=== PATIENT | female | born 1985 | race Caucasian/White ===

== ENCOUNTER 2025-07-18 15:50 | Inpatient (IN) | payer OTHER, SELFPAY ==
[2025-07-18] VITALS (18 sets, daily range): BP systolic 79–115; BP diastolic 51–66; BMI 21.4
--- NOTE | 2025-07-18 12:12 | ED.GENMED ---
History of Present Illness
General
Chief Complaint: Anal/Rectal Problem
Source: patient
Exam Limitations: none
Time Seen by Provider: 07/18/25 12:03
History of Present Illness
History of Present Illness:
See MDM
Past History
Past History
ED Past Medical History: Other (PCOS)
ED Past Surgical History: None
Social History
Tobacco: Non-smoker
Alcohol: None
Phy Exam
Physical Exam
Physical Exam:
See MDM
Course
Orders/Labs/Results
Orders:
Orders
07/18/25 12:07
0.9% Sodium Chloride 1000 ml [Nss] 1,000 ml IV BOLUS
HYDROmorphone [Dilaudid] 0.5 mg IV NOW STA
Test Result ONCE
07/18/25 12:14
Piperacillin/Tazo 3.375 Gram [Zosyn] 3.375 gram in 50 ml IV NOW
07/18/25 12:41
Complete Blood Count/With Diff Urgent
Comprehensive Metabolic Panel Urgent
HCG, Serum Qualitative Screen Urgent
07/18/25 13:09
Vancomycin [Vancocin] 1,500 mg 0.9% Sodium Chloride 500 ml [Nss] 500 ml IV NOW
07/18/25 13:32
Fentanyl Citrate/Pf [Sublimaze] 25 mcg IV [id number] PRN
HYDROmorphone [Dilaudid] 0.25 mg IV [id number] PRN
HYDROmorphone [Dilaudid] 0.5 mg IV [id number] PRN
Ondansetron Injectable [Zofran] 4 mg IV PACU-ONCEPRN PRN
Prochlorperazine [Compazine] 5 mg IV PACU-ONCEPRN PRN
Notify MD As Directed
Notify physician if: for SDS patients with known or suspected sleep obstructive sleep apnea, monitor in the
PACU.
Notify MD for any apneic/desaturation episodes
O2 Therapy [RESP] Urgent
Titrate/Wean O2 to maintain O2 sat greater than (%): 92
Special Instructions: -Provide supplemental oxygen to achieve O2 sat of 92% or greater.
-After 15 min, may wean O2 and discontinue if patient is able to maintain O2 sat of 92%
or greater during recovery period.
If patient is a discharge home, without oxygen therapy, notify anestheiologist if
unable to maintain O2 SAT of 92% or greater on room air for MD clearance.
07/18/25 13:45
Normosol (Mult Electrolytes) [Normosol-R/Plasmalyte-A] 1,000 ml IV PER PROTOCOL
Abnormal Lab Results
07/18/25
12:41
Hct 36.9 L %
(37.0-47.0)
Abs Immat Gran (auto) 0.1 H 10^3/uL
(0-0.05)
Absolute Neuts (auto) 8.0 H 10^3/uL
(1.4-6.5)
Absolute Monos (auto) 0.7 H 10^3/uL
(0.1-0.6)
Immature Gran % 1.4 H %
(0-0.5)
Neutrophils % 77.0 H %
(42.2-75.2)
Lymphocytes % 13.4 L %
(20.5-51.1)
07/18/25 12:41
07/18/25 12:41
Vital Signs
Initial and Last Documented VS:
Initial Vital Signs
Temp Pulse Resp BP Pulse Ox
98.3 F 112 16 115/66 100
07/18/25 11:41 07/18/25 11:41 07/18/25 11:41 07/18/25 11:41 07/18/25 11:41
Last Documented Vital Signs
Temp Pulse Resp BP Pulse Ox
98.3 F 112 16 115/66 100
07/18/25 11:41 07/18/25 11:41 07/18/25 11:41 07/18/25 11:41 07/18/25 12:15
MDM/Problems Addressed
Differential Diagnosis Includes:
Note:
CHIEF COMPLAINT(S)
Cellulitis requiring evaluation and management.
HISTORY OF PRESENT ILLNESS
The patient is a 39-year-old female who was evaluated for cellulitis. She was initially seen at [facility], where she was started on abx. While at [facility], she received a dose of Bactrim in the emergency room, and upon discharge, she consulted a
controller instructor. The controller instructor discontinued Bactrim and initiated doxycycline due to potential renal implications with concurrent use of spironolactone, a medication she is currently taking. Since then, patient has noticed swelling and tenderness
in her left buttock that is now radiating into her labia. She was told to see colorectal surgery as an outpatient. She called the office but was sent to the emergency department due to the concern for significant infection that may require urgent
surgery
ALLERGIES
The patient denies any allergies to medications.
MEDICATIONS
The patient is currently taking doxycycline for her condition and spironolactone.
PHYSICAL EXAM
General: Alert, no acute distress.
Skin: Warm, dry.
Head: Normocephalic, atraumatic
Neck: Appears supple, trachea midline.
Eyes, Ears, Nose, Mouth, and Throat: Moist mucous membranes
Cardiovascular: No signs of cyanosis
Respiratory: Respirations are non-labored.
Abdomen: Non-distended
Rectum: Exam performed with nurse blanca Morris at bedside. Significant swelling and cellulitic changes to left buttock that seems to be tracking to anus
Musculoskeletal: No deformities
Neurological: No focal neurological deficit observed.
Psychiatric: Cooperative, appropriate mood and affect.
PLAN
Initiate strong pain management for cellulitis-associated pain. Discuss potential surgical intervention with Dr. Palm and arrange for further evaluation as needed.
DIFFERENTIAL DIAGNOSIS
The Differential Diagnosis includes, in no particular order and is not limited to:
1. Abscess formation secondary to cellulitis
2. Deep vein thrombosis
3. Erysipelas
4. Insect bite reaction
5. Necrotizing fasciitis
6. Lymphedema
7. Lipodermatosclerosis
8. Venous stasis dermatitis
9. Thrombophlebitis
10. Allergic contact dermatitis
SUMMARY OF ENCOUNTER
The patient was evaluated for cellulitis at [facility], where a CT scan of the abdomen was performed, and she received a dose of Bactrim in the emergency department. A controller instructor switched her from Bactrim to doxycycline due to potential renal
interactions with her current medication, spironolactone. The patient required further evaluation for cellulitis-associated pain management and was assessed for potential surgical intervention for an abscess.
DISPOSITION
Admit to the operating room for surgical debridement of the abscess.
MANAGEMENT OF THE PATIENTS CARE WAS DISCUSSED WITH
Discussion with a colorectal surgeon regarding surgical debridement of abscess.
PLAN
Initiate strong pain management for cellulitis-associated pain. The patient will be admitted to the operating room for surgical debridement of an abscess by a colorectal surgeon. Antibiotics initiated per the surgeon�s recommendation. Post-surgery,
discharge will be considered after an observation period if the patients condition remains stable.
MEDICATION RECONCILIATION
Doxycycline continued for cellulitis management as prescribed by the controller instructor, and appropriate antibiotics started per surgical recommendations.
MEDICAL DECISION MAKING
- Number and Complexity of Problems Addressed: Chronic conditions affecting care include potential renal implications with the concurrent medication spironolactone and concerns for abscess formation secondary to cellulitis.
- Data:
Category 1: CT scan of the abdomen reviewed from [facility].
Category 3: Discussion of management with a colorectal surgeon for surgical intervention.
- Risk: Surgical intervention planned for abscess management accompanied by antibiotic therapy.
DIAGNOSIS
Abscess formation secondary to cellulitis (L02.91).
*Pulse Oximetry
SaO2: 100
Oxygen Mode of Delivery: Room air
Patient hypoxic: no
*Critical Care Note
Total Time (30-74mins, 75-104mins- exclusive of procedures): Not Applicable
ED Attending Note
-
Portions of this chart may have been created with voice recognition software.� Occasional wrong word or��sound alike� substitutions may have occurred due to the inherent limitations of voice recognition software.
Discharge Plan
Departure
Patient Disposition: Admit
Date of Disposition: 07/18/25
Time of Disposition: 13:33
Admit to: Med/Surg
Presentation/result/management discussed w/ accepting MD/DO: Colorectal surgeon
Discharge Problem:
Abscess, perirectal
Prescriptions:
No Action
sertraline 100 mg tablet
200 mg PO DAILY
ibuprofen 600 mg tablet
600 mg PO Q6HPRN PRN (Reason: mild to moderate pain)
metformin 500 mg tablet extended release 24 hr
500 mg PO DAILY
doxycycline hyclate 100 mg tablet
100 mg PO BID
spironolactone 50 mg tablet
50 mg PO HS
buspirone 15 mg tablet
15 mg PO BID
oxycodone 5 mg tablet
5 mg PO Q4HPRN PRN (Reason: moderate to severe pain)
atomoxetine 80 mg capsule
80 mg PO DAILY
Referrals:
Rylee Houston DO [Family Provider, Internal Medicine]
Interventions
Interventions:
*Risk Screen - Suicide Last Done: 07/18/25 11:41
*General Assessment Last Done: 07/18/25 12:42
*Neglect/Abuse Screening Last Done: 07/18/25 11:41
*ED- Fall Risk Assessment Last Done: 07/18/25 12:42
*ED COVID-19 Vaccine History Last Done: 07/18/25 12:42
*ED Influenza Vaccine History Last Done: 07/18/25 12:42
ED-Skin Assessment Last Done: 07/18/25 12:42
Discharge Date and Time
Print Language: FAROESE
[2025-07-18] MEDS: DILAUDID 0.5 MG IV (12:33)
[2025-07-18] MEDS: NSS 1000 IV (12:33)
[2025-07-18] MEDS: ZOSYN 50 IV ×3 (12:34→23:41)
[2025-07-18 13:06] LABS: Hematocrit 36.9 % (37.0-47.0); Hemoglobin 12.4 g/dL (12.0-16.0); Mean Corp Hgb Conc. 33.6 g/dL (33.0-37.0); Mean Corpuscular Volume 82.7 fL (81.0-99.0); Nucleated Red Blood Cells % 0 %; Platelet Count 344 10^3/uL (130-400); Red Cell Dist. Width 12.9 % (11.5-14.5)
[2025-07-18 13:23] LABS: HCG, Serum Qualitative Screen Negative
[2025-07-18] MEDS: VANCOCIN 530 MG IV (13:28)
[2025-07-18 13:30] LABS: ALT (SGPT) 15 U/L (0-35); AST (SGOT) 19 U/L (14-36); Albumin 4.0 g/dl (3.5-5.0); Alkaline Phosphatase 84 U/L (38-126); Blood Urea Nitrogen 8 mg/dl (7-17); Calcium 9.8 mg/dl (8.4-10.2); Carbon Dioxide 27 mmol/L (22-30); Chloride 106 mmol/L (98-107); Estimated Creatinine Clearance 116 ml/min; Glucose 90 mg/dl (70-99); Potassium 4.4 mmol/L (3.5-5.1); Sodium 138 mmol/L (135-145); Total Protein 6.8 g/dl (6.3-8.2); eGFR > 60.00
--- NOTE | 2025-07-18 13:33 | HPS.HSE ---
Family Physician
-
Family Physician: Rylee Houston DO
Chief Complaint
-
buttock pain
History of Present Illness
39-year-old female, with a past medical history of PCOS, presents to the emergency department complaining of anal pain. She was initially seen at [facility] and was started on Bactrim. After discharge she went to a home hospice rn. The
home hospice rn stopped the Bactrim and then started doxycycline due to potential renal implications given that she is on spironolactone. Since that appointment, the patient has noticed swelling and tenderness in the left buttock that is now started
radiating into her labia. It started to have bleeding and pus two days ago. She called our office earlier this morning asking to be seen sooner than her 3:00 appointment. Her bowel movements are regular. She does mention having rectal bleeding off
an on with her menstrual cycle for the past 15 years. Her mother has colon cancer and she has had several colonoscopies in the past. Apparently she is 'polyp prone' and has had many polyps removed in the past. She had two surgeries for endometriosis
and an appendectomy. Due to the pain, Dr. Palm spoke with her on the phone and given the amount of pain, she was referred to the emergency department.
Medical History
Past Medical History
Past Medical History: Reports Other (PCOS, recent right eye cellulitis)
Past Surgical History: Reports Appendectomy and Other (endometriosis surgery x 2)
Social History
Tobacco: Non-smoker
Alcohol: None
Family History
Family History: Not pertinent
Allergies / Home Medications
Allergies reflects when Allergies were last updated in [facility].
Home Medications with original date entered in [facility]
Allergy/Medication List:
Allergies: none
Medications:
Atomoxetine 80 mg p.o. daily
Buspirone 15 mg p.o. twice daily
Doxycycline hyclate 100 mg p.o. twice daily
Metformin 500 mg p.o. daily
Oxycodone 5 mg p.o. every 4 hours as needed
Sertraline 200 mg p.o. daily
Spironolactone 50 mg p.o. nightly
Review of Systems
-
History Source: Patient
: Reports Other (anal pain and swelling on left buttock)
Physical Exam
Vital Signs
Vital Signs
Temp Pulse Resp BP Pulse Ox
98.3 F 112 16 115/66 100
07/18/25 11:41 07/18/25 11:41 07/18/25 11:41 07/18/25 11:41 07/18/25 12:15
Physical Exam
General: Well Developed, Well Nourished and No Apparent Distress
Rectal: Other (Large left buttocks abscess, erythema surrounding abscess, pain on palpation)
Skin: Warm and Dry
Neuro: AO x 3
Psych: Calm
Laboratory Results
-
07/18/25 12:41
07/18/25 12:41
Laboratory Results
Total Bilirubin 0.4 mg/dl (0.2-1.3) 07/18/25 12:41
AST 19 U/L (14-36) 07/18/25 12:41
ALT 15 U/L (0-35) 07/18/25 12:41
Alkaline Phosphatase 84 U/L (38-126) 07/18/25 12:41
Data Reviewed
-
Lab Data: Labs Reviewed by me, Discussed with Physician and Discussed with Patient
Impression/Plan
-
IMPRESSION: 39-year-old female with large left buttocks abscess
PLAN: Plan is for operating room today for an incision and drainage of the left buttocks abscess. Remain n.p.o. for now. Discussed with patient who is in agreement. Will take place later this afternoon. IV antibiotics.
--- NOTE | 2025-07-18 15:58 | W.IMMPOSTOP ---
Addendum entered and electronically signed by Bo Vega MD 07/18/25 16:10:
Updated patient's friend, Sandra Sargent, via phone conversation.
Original Note:
Surgical Immed Post Op Note
-
Primary Surgeon: Junior Vega MD
Assisting Surgeon: none
Pre-op Diagnosis: left buttock cellulitis with abscess
Post-op Diagnosis: same
Procedure Performed: incision and drainage of left buttock abscess
Anesthesia Type: MAC plus local
Specimen / Cultures: left buttock abscess fluid for cultures
Estimated Blood Loss: 10 cc
Complications: no immediate
Operative Findings: left buttock cellulitis with abscess
Wound packed with iodoform and covered with dry dressings/tape.
Will send to med surg on IV antibiotics.
[2025-07-18] MEDS: NORMOSOL-R/PLASMALYTE-A 1000 IV (18:48)
[2025-07-18] MEDS: TYLENOL 650 MG PO (19:51)
[2025-07-18] MEDS: ROXICODONE 2.5 MG PO (20:52)
[2025-07-19 01:18] VITALS: BP 98/66
[2025-07-19 03:00] VITALS: BP 110/81
--- NOTE | 2025-07-19 03:43 | PTCARENOTE ---
Patient resting comfortably in bed. She is sleepy but easily arousable. SBP 80's-90. Patient denies dizziness. IVF per order. PO intake encouraged. Ambulating with steady gait. Repeat BP 110/81.
[2025-07-19] MEDS: ZOSYN 50 IV ×2 (06:18→13:59)
[2025-07-19 07:00] VITALS: BP 104/53
[2025-07-19] MEDS: ROXICODONE 5 MG PO ×3 (08:11→22:27)
--- NOTE | 2025-07-19 08:31 | W.PN.CRS1 ---
Today's Communication / Plan
-
sitz baths
pain control
IV antibiotics
npo midnight
Assessment/Plan
-
POD#1 incision and drainage of left buttock abscess
labs pending
-Apparently dilaudid IV making patient hypotensive per nurse, switched to po oxycodone
-OOB as tolerated
-Sitz baths twice a day with warm water
-Continue IV antibiotics
-Restart home meds
-Regular diet. NPO at midnight in case needs a take back to OR tomorrow.
-Wound cultures pending
-Dressing changes daily and as needed
Subjective Data
Procedure
07/18/2025- incision and drainage of left buttock abscess
Subjective Data
Date of Service: July 19, 2025
Patient states she is still sore but feels better. Otherwise has no complaints.
Objective Data
-
Vital Signs
Temp Pulse Resp BP Pulse Ox
98.4 F 74 16 104/53 100
07/19/25 07:00 07/19/25 07:00 07/19/25 07:00 07/19/25 07:00 07/19/25 07:00
Intake & Output
07/18/25 07/19/25 07/20/25
06:59 06:59 06:59
Intake Total 1645 / 2125 480 / 480
Balance 1645 / 2125 480 / 480
Intake:
Oral fluids 720 / 1200 480 / 480
IV fluids (Total) 825 / 825
IV piggybacks 100 / 100
Other:
Number of approximated MODERATE 2 1
amounts of urine
Number of approximated LARGE 1 2
amounts of urine
Lab Results
07/18/25 12:41
Physical Exam
-
General: No Acute Distress and AOx3
Abdomen: Soft, Non Distended and Non Tender
Wound: Dressing Changed
Incision: Skin Erythema (mild, improved)
[2025-07-19] MEDS: BUSPAR 15 MG PO ×2 (09:07→19:49)
[2025-07-19] MEDS: ZOLOFT 200 MG PO (09:07)
[2025-07-19] MEDS: GLUCOPHAGE XR EXTENDED RELEASE 500 MG PO (09:11)
[2025-07-19 09:18] LABS: Hematocrit 34.3 % (37.0-47.0); Hemoglobin 11.4 g/dL (12.0-16.0); Mean Corp Hgb Conc. 33.2 g/dL (33.0-37.0); Mean Corpuscular Volume 84.1 fL (81.0-99.0); Nucleated Red Blood Cells % 0 %; Platelet Count 332 10^3/uL (130-400); Red Cell Dist. Width 12.7 % (11.5-14.5)
--- NOTE | 2025-07-19 09:59 | CM ---
CM following re: discharge planning.
Reviewed pt's chart, met with pt.
Pt is a 39 year old female, admitted with primary dx of POD#1 incision and drainage of left buttock abscess.
Pt reports she lives alone in an apartment, no steps, no family, no children. Pt described herself as independent in all areas [employer], works.
PCP: Rylee Houston
[facility]
D/C plan: home with anticipated no needs vs RN VN if recommended.
CM will follow with discharge plan updates as hospitalization progresses
[2025-07-19 11:00] VITALS: BP 109/76
[2025-07-19] MEDS: NORMOSOL-R/PLASMALYTE-A 1000 IV (11:16)
[2025-07-19 13:36] LABS: Glucose - Point of Care 136 mg/dl (70-99)
--- NOTE | 2025-07-19 14:07 | W.PN.UPDATE ---
Update Note
Progress Note Update
I was called to the bedside by nurse about 20 minutes ago. Patient had new onset chest pain like 'an elephant was sitting on her chest which is a pain like someone had 2 hands on her chest'. The nurse performed an EKG which showed normal sinus
rhythm. She is hooked up to a monitor and her vital signs are completely normal. Her symptoms are resolving. She does not appear in any distress or shortness of breath on my examination. I will have the hospitalist see her in consultation. The
patient herself says she is feeling a little bit better every minute. Also, her wound is growing MRSA and I have consulted infectious disease.
--- NOTE | 2025-07-19 14:14 | PTCARENOTE ---
Patient rang for nurse around 1325 c/o chest tightness/heaviness, unable to take a deep breath and shakiness. VS at that time were Temp 98.3 BP 102/64 HR 136 Resps 18. O2 sat on RA 100%. Blood sugar was 136. Ekg obtained. NSR. While talking to
patient heart rate came down to 84. Juana Temple PA-C notified. Came to bedside to see patient. Hospitalist consult ordered and pending.
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
[2025-07-19 15:45] VITALS: BP 113/66
--- NOTE | 2025-07-19 16:29 | PHA.VAN.IN ---
Assessment
- Assessment
Renal Function: Unknown baseline
Historical Micro: History of MRSA infection
AUC Dosing Plan
- Empiric Dosing
Initial / Loading Dose: 1500 mg @ 1328
Maintenance Regimen: 1000 mg IV Q12H
Estimated AUC (mcg*h/mL): 495
Estimated Peak (mcg*h/mL): 33.8
Estimated Trough (mcg/ml): 11.2
Estimated Half Life (H): 6.9
- Monitoring
No levels ordered at this time: level to be ordered at follow-up
Pharmacokinetics Vancomycin I
- -
Patient Age: 39
Vancomycin Day #: 1
Indication: Skin And Soft Tissue
Requesting Provider: Buck Porras MD
Height / Weight:
Height 5 ft 6 in
Actual Weight 60.2 kg
- Vital Signs / Lab Results
Temp Pulse Resp BP Pulse Ox
98.1 F 108 16 113/66 97
07/19/25 15:45 07/19/25 15:45 07/19/25 15:45 07/19/25 15:45 07/19/25 15:45
Lab Results - Hematology
07/18/25 07/19/25
12:41 08:09
WBC 10.4 9.7
Lab Results - Chemistry
07/18/25
12:41
BUN 8
Creatinine 0.6
Estimated Creat Clear 116
Albumin 4.0
Microbiology Results
07/18/25 16:00 Anaerobic Culture - Preliminary
Buttock Culture pending. Anaerobic cultures are examined after 3
days incubation. Additional information to follow.
07/18/25 16:00 Wound Culture - Preliminary
Buttock Staph aureus MRSA
Gram Stain - Preliminary
[2025-07-19 16:48] LABS: Troponin I < 0.012 ng/ml
--- NOTE | 2025-07-19 17:05 | CON.ID ---
Consultation
-
Date/Time Consultation Requested: 07/19/2025 1404
Date/Time Consultation Performed: 07/19/2025 1706
Requesting Provider: Juana Temple
Performing Provider: Dr. Brown
Reason for Consultation: MRSA abscess
Chief Complaint / Past History
History of Present Illness
Saloni Hernandez is a 39-year-old female being evaluated at request of Juana Temple regarding MRSA buttock abscess. History is obtained from chart review, along with patient interview.
The patient reports a significant past medical history of polycystic ovarian syndrome along with endometriosis and also a history of cystic acne for which she is followed by Dermatology and uses Hibiclens soap. She reports that approximately 2
weeks ago she developed a area of cellulitis/SSTI above her right eye and was seen at [facility]. There she was diagnosed with cellulitis and prescribed a 7-day course of amoxicillin. The right eye area improved but approximately 1 week
ago she developed a painful furuncle on the left buttock area. She was seen again at [facility] [address] scan was performed which was reportedly negative. She was prescribed Bactrim. The following day she was evaluated by her
Electrical Maintenance Engineer and was transitioned to Doxy. Ultimately, the pain worsened and she presented to [facility] yesterday for further evaluation. She was evaluated by CRS and taken to the OR yesterday afternoon, undergoing an I&D of a left
buttock abscess. Cultures are now positive for MRSA from the wound and Infectious Diseases is asked to comment upon further antimicrobial management.
At this time she continues with discomfort in the left buttock, and extending to the left labial area.
Past History
Additional Past Medical History:
PCOS
Endometriosis
Additional Past Surgical History:
Endometrial surgery
Allergy History:
gluten Allergy (Verified 07/18/25 20:17)
Shortness of Breath
Medications Reviewed: Yes
Current Antibiotics:
Vancomycin 1 gm IV q.12 hours
Social History
Tobacco: Non-Smoker
Alcohol: None
Drug: None
Living: Alone
Employment: Employed
Family History
Family History: Not Pertinent
Review of Systems
Vital Signs
Temp Pulse Resp BP Pulse Ox
98.1 F 108 16 113/66 97
07/19/25 15:45 07/19/25 15:45 07/19/25 15:45 07/19/25 15:45 07/19/25 15:45
Physical Exam
Physical Exam
Constitutional: No Acute Distress, Comfortable and Non-toxic
Eyes: No Conjunctival Hemorrhage and Sclera Anicteric
Oral: No Thrush and No Ulcers
Cardiovascular: Regular Rate and S1/S2; Negative S3/S4
Pulmonary: Clear; Negative Wheezes, Rales or Rhonchi
Gastrointestinal: Soft, Non Tender and Non Distended
Skin: Other (Left buttock area with open wound (1 cm) with surrounding erythema and induration. Positive tenderness.)
Neurological: Awake and Alert
Psychological: Calm
.
Lab / Diagnostic Study Results
07/19/25 08:09
07/18/25 12:41
Abs Immat Gran (auto) 0.2 10^3/uL (0-0.05) H 07/19/25 08:09
Absolute Neuts (auto) 6.6 10^3/uL (1.4-6.5) H 07/19/25 08:09
Absolute Lymphs (auto) 2.0 10^3/uL (1.2-3.4) 07/19/25 08:09
Absolute Monos (auto) 0.7 10^3/uL (0.1-0.6) H 07/19/25 08:09
Absolute Basos (auto) 0.1 10^3/uL (0-0.2) 07/19/25 08:09
Immature Gran % 1.9 % (0-0.5) H 07/19/25 08:09
Neutrophils % 68.5 % (42.2-75.2) 07/19/25 08:09
Lymphocytes % 20.9 % (20.5-51.1) 07/19/25 08:09
Monocytes % 6.7 % (1.7-9.3) 07/19/25 08:09
Eosinophils % 1.1 % (0-6) 07/19/25 08:09
Basophils % 0.9 % (0-2) 07/19/25 08:09
Microbiology Results
Micro:
07/19/25 16:14 Blood Culture - Pending
Blood/Venous
07/18/25 16:00 Anaerobic Culture - Preliminary
Buttock Culture pending. Anaerobic cultures are examined after 3
days incubation. Additional information to follow.
07/18/25 16:00 Wound Culture - Preliminary
Buttock Staph aureus MRSA
Gram Stain - Preliminary
07/18/25 20:25 MRSA Screen - Pending
Nose
Assessment / Plan
Left buttock abscess
- S/p I&D (07/18/2025)
Normal white count with left shift
Hx Cystic acne
PCOS
Endometriosis
Recommendations:
Wound cultures with MRSA.
Continue with vancomycin for the present. Follow Vanco levels closely to prevent nephrotoxicity
Await final culture and sensitivity results to guide further antimicrobial selection and potential de-escalation.
Local care to the wound area. Follow-up for improvement in induration.
Monitor white count and temperature curve
Further recommendations as additional data is returned.
[2025-07-19] MEDS: TYLENOL 1000 MG PO ×2 (17:48→22:21)
[2025-07-19] MEDS: HEPARIN 5000 UNITS SC (19:49)
[2025-07-19] MEDS: NORMOSOL-R/PLASMALYTE-A IV (21:21)
[2025-07-19] MEDS: ALDACTONE 50 MG PO (22:21)
[2025-07-19 23:00] VITALS: BP 106/67
[2025-07-20] MEDS: NORMOSOL-R/PLASMALYTE-A 1000 IV ×2 (03:32→17:21)
[2025-07-20 07:05] VITALS: BP 114/76
[2025-07-20 08:38] LABS: Hematocrit 34.8 % (37.0-47.0); Hemoglobin 11.7 g/dL (12.0-16.0); Mean Corp Hgb Conc. 33.6 g/dL (33.0-37.0); Mean Corpuscular Volume 84.3 fL (81.0-99.0); Platelet Count 340 10^3/uL (130-400); Red Cell Dist. Width 12.6 % (11.5-14.5)
[2025-07-20] MEDS: TYLENOL 1000 MG PO ×4 (08:45→22:11)
[2025-07-20] MEDS: BUSPAR 15 MG PO ×2 (08:45→20:14)
[2025-07-20] MEDS: GLUCOPHAGE XR EXTENDED RELEASE 500 MG PO (08:45)
[2025-07-20] MEDS: ZOLOFT 200 MG PO (08:45)
[2025-07-20] MEDS: HEPARIN 5000 UNITS SC ×2 (08:46→20:14)
[2025-07-20 08:53] LABS: Blood Urea Nitrogen 8 mg/dl (7-17); Calcium 8.5 mg/dl (8.4-10.2); Carbon Dioxide 29 mmol/L (22-30); Chloride 106 mmol/L (98-107); Estimated Creatinine Clearance 116 ml/min; Glucose 78 mg/dl (70-99); Potassium 4.2 mmol/L (3.5-5.1); Sodium 140 mmol/L (135-145); eGFR > 60.00
--- NOTE | 2025-07-20 09:33 | W.PN.ID1 ---
Date of Service
Date of Service: July 20, 2025
Today's Communication
Continue antibiotics.
Assessment / Plan
Left buttock abscess
- S/p I&D (07/18/2025)
Normal white count with left shift
Hx Cystic acne
PCOS
Endometriosis
Recommendations:
Wound cultures with MRSA.
Continue with vancomycin for the present. Follow Vanco levels closely to prevent nephrotoxicity.
Local care to the wound area. Follow for improvement in induration.
Once improved, may be able to transition to high-dose Bactrim and doxycycline. Linezolid would be a relative contraindication given underlying sertraline, buspirone and atomoxetine use.
Monitor white count and temperature curve
����������������������������������������������������������
Chief Complaint
-: Other (MRSA left buttock SSTI)
Subjective / Review of Systems
Patient seen and examined. Reports ongoing left buttock pain. No fevers or chills.
Vital Signs / Physical Exam
Vital Signs
Vital Signs
Temp Pulse Resp BP Pulse Ox
98.1 F 83 16 114/76 100
07/20/25 07:05 07/20/25 07:05 07/20/25 07:05 07/20/25 07:05 07/20/25 07:05
Physical Exam
Constitutional: No Acute Distress, Comfortable and Non-toxic
Eyes: Sclera Anicteric
Cardiovascular: S1/S2; Negative S3/S4
Pulmonary: Non Labored
Gastrointestinal: Soft, Non Tender and Non Distended
Extremities: Negative Edema, Cyanosis or Erythema
Wound: Other (Left buttock wound area remains indurated, erythematous and very tender to touch. Minimal drainage at present.)
Neurological: Awake and Alert
Psychological: Calm
Objective Data
Lab Data
Lab Results
07/20/25 08:12
07/20/25 08:12
Estimated Creat Clear 116 ml/min 07/20/25 08:12
Total Bilirubin 0.4 mg/dl (0.2-1.3) 07/18/25 12:41
AST 19 U/L (14-36) 07/18/25 12:41
ALT 15 U/L (0-35) 07/18/25 12:41
Alkaline Phosphatase 84 U/L (38-126) 07/18/25 12:41
Most recent labs reviewed.
Micro Results:
07/18/25 20:25 MRSA Screen - Final
Nose No Methicillin Resistant Staphylococcus aureus isolated.
07/18/25 16:00 Wound Culture - Preliminary
Buttock Staph aureus MRSA
Gram Stain - Preliminary
07/19/25 16:14 Blood Culture - Pending
Blood/Venous
07/18/25 16:00 Anaerobic Culture - Preliminary
Buttock Culture pending. Anaerobic cultures are examined after 3
days incubation. Additional information to follow.
Wound/abscess/other Cult Preliminary 07/18/25
Moderate Staph aureus MRSA
Isolation Precautions Required
Called to [phone] on 07/19/25 at 1132 by [facility]
Organism 1 Staph aureus MRSA
1. Staph aureus MRSA
M.I.C. RX
--------- ---
Amoxicillin/Potas. Clavulanate <=4/2 R
Ampicillin 8 R
Clindamycin >4 R
Gentamicin <=4 S
Erythromycin >4 R
Levofloxacin 4 I
Oxacillin >2 R
Tetracycline <=4 S
Trimethoprim/Sulfamethoxazole <=0.5/9.5 S
Vancomycin 1 S
Care Review
Plan reviewed with: Physician (CRS)
[2025-07-20 10:32] LABS: Glycohemoglobin (HgbA1c) 5.5 % (4.0-5.6)
--- NOTE | 2025-07-20 10:59 | W.PN.HOSP.TC ---
Today's Communication/Plan
-
.
Assessment / Plan
Assessment / Plan
Physical Exam
General: No Apparent Distress and Comfortable
HEENT: Moist Mucous Membranes
Respiratory: Clear and Non Labored Respirations; Negative Wheezes or Rales
Cardiac: S1/S2 and Regular Rhythm; Negative Murmur
GI: Soft and Non Tender
Genito-urinary: Negative Lim Catheter
Musculoskeletal: No Cyanosis and No Edema
Skin: Negative Jaundice
Neuro: AO x 3 and Nonfocal/Grossly Intact
Psych: Calm and Intact Judgement
39 years old female presented with left buttock cellulitis and abscess
#Status post incision and drainage of left buttock abscess
Wound culture positive for MRSA. She received intravenous Zosyn. on IV vancomycin, can change to oral
She is afebrile, nontoxic-appearing.
No leukocytosis.
ID is consulted
Blood culture nGTD
Follow-up with surgery recommendation. Wound care
# Possible panic attack/ worsening pain. She had an episode of chest pain/heavy breathing. She was hemodynamically stable. Normal pulse ox. Resolved
Currently, she does not have chest pain or shortness of breath. EKG showed normal sinus rhythm with no ischemic changes. Negative troponin. c/w Tylenol [id number]
# History of PTSD, continue psych medications.
QT interval is normal. Mood is pleasant and cooperative
# DVT prophylaxis add subcu heparin
Total time spent to see the patient, examine the patient, review data lab result, discussed treatment plan with patient, nursing staff around 55 minutes
Anticipated Discharge: 24 - 48 hours
Subjective/Interval History
-
Date of Service: July 20, 2025
less pain
no chest pain or sob
Objective Data
-
Labs:
Laboratory Results
07/20/25
08:12
WBC 6.7
Hgb 11.7 L
Hct 34.8 L
Plt Count 340
Sodium 140
Potassium 4.2
Chloride 106
Carbon Dioxide 29
BUN 8
Creatinine 0.6
Glucose 78
Calcium 8.5
Vital Signs:
Vital Signs
Temp Pulse Resp BP Pulse Ox
98.1 F 83 16 114/76 100
07/20/25 07:05 07/20/25 07:05 07/20/25 07:05 07/20/25 07:05 07/20/25 07:05
I&O
07/19/25 07/20/25 07/21/25
06:59 06:59 06:59
Intake Total 1644
Balance 1644
[2025-07-20] MEDS: ROXICODONE 5 MG PO ×2 (11:04→22:19)
[2025-07-20] MEDS: VANCOCIN 200 IV ×3 (12:24→23:26)
--- NOTE | 2025-07-20 12:56 | CM ---
CM met with pt bedside
She noted she resides in a 2nd floor apartment in older house with 10STE and approx 30 steps to her 2nd floor apartment
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
Questions answered regarding FMLA and disability
She will call her HR on Tuesday to obtain paperwork
She noted she will not have a ride home on dc as her only friend is close to giving
Will need a ride home arranged on dc
She has only approx $60 in her bank account as she has not been working, she may need financial assistance with dc services and care
Discharge Disposition- home, follow for possible wound and abx needs, may be financial assistance
--- NOTE | 2025-07-20 14:05 | PHA.VAN.FU ---
Vancomycin Assessment / Plan
- Assessment
Renal Function: Stable
WBC's are: WNL
In the past 24 hrs, patient has been: Afebrile
- Dosing Plan
Continue: Vanc 1000mg Q12H
- Monitoring Plan
No level(s) ordered at this time: consider levels in next few days
- Follow Up
Pharmacy will continue to follow.
Vancomycin Follow UP
- -
Patient Age: 39
Vancomycin Day #: 2
Indication: Skin And Soft Tissue
Requesting Provider: Buck Porras MD / Dr. Brown
Pertinent Antimicrobial Allergies:
no pertinent antibiotic allergies
Height / Weight:
Height 5 ft 6 in
Actual Weight 60.2 kg
- Vital Signs / Lab Results
Temp Pulse Resp BP Pulse Ox
98.1 F 83 16 114/76 100
07/20/25 07:05 07/20/25 07:05 07/20/25 07:05 07/20/25 07:05 07/20/25 07:05
Lab Results - Hematology
07/18/25 07/19/25 07/20/25
12:41 08:09 08:12
WBC 10.4 9.7 6.7
Lab Results - Chemistry
07/18/25 07/20/25
12:41 08:12
BUN 8 8
Creatinine 0.6 0.6
Estimated Creat Clear 116 116
Albumin 4.0
Microbiology Results
07/18/25 20:25 MRSA Screen - Final
Nose No Methicillin Resistant Staphylococcus aureus isolated.
07/18/25 16:00 Wound Culture - Preliminary
Buttock Staph aureus MRSA
Gram Stain - Preliminary
07/18/25 16:00 Anaerobic Culture - Preliminary
Buttock Culture pending. Anaerobic cultures are examined after 3
days incubation. Additional information to follow.
--- NOTE | 2025-07-20 14:20 | W.PN.CRS1 ---
Today's Communication / Plan
-
Local wound care/abx
Assessment/Plan
-
39 yo female presenting for left buttock abscess with erythema/edema tracking into the left labia
POD#2 incision and drainage
+MRSA on cx
No leukocytosis
Plan:
-analgesics as needed
-regular diet today, NPO after MN in case further OR warranged
-OOB as tolerated
-Sitz baths twice a day with warm water
-Continue antibiotics as per ID
-continue home meds
-Dressing changes daily and as needed, mesh underwear to hold dressings in place to avoid tape
Subjective Data
Procedure
07/18/2025- incision and drainage of left buttock abscess
Subjective Data
Date of Service: July 20, 2025
Pt seen and examined at bedside with Dr. Vega. Still with pain to the left buttock, feels swelling into the labia is a little better but still present.
Objective Data
-
Vital Signs
Temp Pulse Resp BP Pulse Ox
98.1 F 83 16 114/76 100
07/20/25 07:05 07/20/25 07:05 07/20/25 07:05 07/20/25 07:05 07/20/25 07:05
Intake & Output
07/19/25 07/20/25 07/21/25
06:59 06:59 06:59
Intake Total 1645 / 2125 1820 / 1820
Balance 1645 / 2125 1820 / 1820
Intake:
Oral fluids 720 / 1200 720 / 720
IV fluids (Total) 825 / 825 900 / 900
IV piggybacks 100 / 100 200 / 200
Other:
Number of approximated MODERATE 2 3
amounts of urine
Number of approximated LARGE 1 2
amounts of urine
Lab Results
07/20/25 08:12
07/20/25 08:12
Physical Exam
-
General: No Acute Distress and AOx3
Abdomen: Soft, Non Distended and Non Tender
Wound: Dressing Changed, Skin Erythema (tracking from left labia to buttock wound) and Other (buttock wound open without much drainage, ssf on gauze pad, very tender with minimal residual induration around the opening)
Incision: Skin Erythema (mild, improved)
[2025-07-20 15:00] VITALS: BP 98/55
[2025-07-20 17:44] VITALS: BP 104/70
[2025-07-20] MEDS: ALDACTONE 50 MG PO (22:11)
[2025-07-20 23:09] VITALS: BP 96/66
--- NOTE | 2025-07-21 04:44 | PTCARENOTE ---
Patient has been NPO since midnight.
[2025-07-21] MEDS: NORMOSOL-R/PLASMALYTE-A 1000 IV (05:49)
[2025-07-21] MEDS: ROXICODONE 5 MG PO ×2 (05:51→10:32)
[2025-07-21 07:35] VITALS: BP 106/59
[2025-07-21 07:50] LABS: Blood Urea Nitrogen 9 mg/dl (7-17); Calcium 8.7 mg/dl (8.4-10.2); Carbon Dioxide 25 mmol/L (22-30); Chloride 107 mmol/L (98-107); Estimated Creatinine Clearance 116 ml/min; Glucose 79 mg/dl (70-99); Potassium 4.3 mmol/L (3.5-5.1); Sodium 138 mmol/L (135-145); eGFR > 60.00
[2025-07-21] MEDS: TYLENOL 1000 MG PO ×4 (08:23→21:19)
[2025-07-21] MEDS: BUSPAR 15 MG PO ×2 (08:23→21:19)
[2025-07-21] MEDS: ZOLOFT 200 MG PO (08:23)
[2025-07-21] MEDS: HEPARIN 5000 UNITS SC ×2 (08:24→21:20)
--- NOTE | 2025-07-21 08:28 | W.PN.CRS1 ---
Today's Communication / Plan
-
ABX
Assessment/Plan
-
39 yo female presenting for left buttock abscess with erythema/edema tracking into the left labia
POD#4 incision and drainage
+MRSA on cx
Erythema and pain improving
Plan:
-analgesics as needed
-regular diet
-OOB as tolerated
-Sitz baths twice a day with warm water
-Continue antibiotics as per ID
-continue home meds
-Dressing changes daily and as needed, mesh underwear to hold dressings in place to avoid tape
Subjective Data
Procedure
07/18/2025- incision and drainage of left buttock abscess
Subjective Data
Date of Service: July 21, 2025
Pt seen and examined at bedside with Dr. Vega. Denies n/v. Pain improving.
Objective Data
-
Vital Signs
Temp Pulse Resp BP Pulse Ox
98.0 F 69 16 106/59 99
07/21/25 07:35 07/21/25 07:35 07/21/25 07:35 07/21/25 07:35 07/21/25 07:35
Intake & Output
07/20/25 07/21/25 07/22/25
06:59 06:59 06:59
Intake Total 0 / 1820 1889 / 189
Balance 1820 / 1820 1889 / 189
Intake:
Oral fluids 720 / 720 840 / 840
IV fluids (Total) 900 / 900 850 / 850
IV piggybacks 200 / 200 200 / 200
Other:
Number of approximated MODERATE 3 2
amounts of urine
Number of approximated LARGE 2 1
amounts of urine
Lab Results
07/20/25 08:12
07/21/25 06:49
Physical Exam
-
General: No Acute Distress and AOx3
Abdomen: Soft, Non Distended and Non Tender
Wound: Dressing Changed and Other (buttock wound open without much drainage, ssf on gauze pad, tender)
Incision: Skin Erythema (mild, improved)
--- NOTE | 2025-07-21 09:07 | W.PN.HOSP.TC ---
Today's Communication/Plan
-
f/w surgery & ID recommendations
Assessment / Plan
Assessment / Plan
Physical Exam
General: No Apparent Distress and Comfortable
HEENT: Moist Mucous Membranes
Respiratory: Clear and Non Labored Respirations; Negative Wheezes or Rales
Cardiac: S1/S2 and Regular Rhythm; Negative Murmur
GI: Soft and Non Tender
Genito-urinary: Negative Lim Catheter
Musculoskeletal: No Cyanosis and No Edema
Skin: Negative Jaundice. Left buttock wound site looks clean, no purulent discharge, no surrounding erythema
Neuro: AO x 3 and Nonfocal/Grossly Intact
Psych: Calm and Intact Judgement
39 years old female presented with left buttock cellulitis and abscess
#Status post incision and drainage of left buttock abscess
Wound culture positive for MRSA. She received intravenous Zosyn. on IV vancomycin, can change to oral
She is afebrile, nontoxic-appearing.
No leukocytosis.
ID is consulted
Blood culture NGTD
Follow-up with surgery recommendation. Wound care
# Possible panic attack/ worsening pain. She had an episode of chest pain/heavy breathing. She was hemodynamically stable. Normal pulse ox. Resolved
Currently, she does not have chest pain or shortness of breath. EKG showed normal sinus rhythm with no ischemic changes. Negative troponin. c/w Tylenol [id number]
# History of PTSD, continue psych medications.
QT interval is normal. Mood is pleasant and cooperative
# DVT prophylaxis add subcu heparin
Total time spent to see the patient, examine the patient, review data lab result, discussed treatment plan with patient, nursing staff around 45 minutes
Anticipated Discharge: Within 24 hours
Subjective/Interval History
-
Date of Service: July 21, 2025
Feeling better
No chest pain
No sob
Ambulating with less pain in buttock
Objective Data
-
Labs:
Laboratory Results
07/21/25
06:49
Sodium 138
Potassium 4.3
Chloride 107
Carbon Dioxide 25
BUN 9
Creatinine 0.6
Glucose 79
Calcium 8.7
Vital Signs:
Vital Signs
Temp Pulse Resp BP Pulse Ox
98.0 F 69 16 106/59 99
07/21/25 07:35 07/21/25 07:35 07/21/25 07:35 07/21/25 07:35 07/21/25 07:35
I&O
07/20/25 07/21/25 07/22/25
06:59 06:59 06:59
Intake Total 1819
Balance 1819
--- NOTE | 2025-07-21 10:29 | W.PN.ID1 ---
Date of Service
Date of Service: July 21, 2025
Today's Communication
Continue antibiotics.
Assessment / Plan
Left buttock abscess
- S/p I&D (07/18/2025)
Normal white count with left shift
Hx Cystic acne
PCOS
Endometriosis
Recommendations:
Wound cultures with MRSA.
Continue with vancomycin for the present. Follow Vanco levels closely to prevent nephrotoxicity.
Local care to the wound area. Follow for improvement in induration.
Given overall improvement, can likely transition tomorrow to Bactrim DS, 2 tabs BID and doxycycline 100 mg p.o. BID, both for 7 additional days.
--> Hold spironolactone while on Bactrim. (Will discontinue today in anticipation of tomorrow's transition to Bactrim)
Linezolid would be a relative contraindication given underlying sertraline, buspirone and atomoxetine use.
Monitor white count and temperature curve
����������������������������������������������������������
Chief Complaint
-: Other (MRSA left buttock SSTI)
Subjective / Review of Systems
Patient seen and examined. Notes some ongoing left buttock discomfort, but improved from admission. No fevers or chills.
Vital Signs / Physical Exam
Vital Signs
Vital Signs
Temp Pulse Resp BP Pulse Ox
98.0 F 69 16 106/59 99
07/21/25 07:35 07/21/25 07:35 07/21/25 07:35 07/21/25 07:35 07/21/25 07:35
Physical Exam
Constitutional: No Acute Distress, Comfortable and Non-toxic
Eyes: Sclera Anicteric
Pulmonary: Non Labored
Gastrointestinal: Non Distended
Extremities: Negative Edema, Cyanosis or Erythema
Wound: Other (Left buttock wound area remains indurated but improved, erythema improved, decreased tenderness to touch. Minimal drainage at present.)
Neurological: Awake and Alert
Psychological: Calm
Objective Data
Lab Data
Lab Results
07/20/25 08:12
07/21/25 06:49
Estimated Creat Clear 116 ml/min 07/21/25 06:49
Total Bilirubin 0.4 mg/dl (0.2-1.3) 07/18/25 12:41
AST 19 U/L (14-36) 07/18/25 12:41
ALT 15 U/L (0-35) 07/18/25 12:41
Alkaline Phosphatase 84 U/L (38-126) 07/18/25 12:41
Most recent labs reviewed.
Micro Results:
07/19/25 16:14 Blood Culture - Preliminary
Blood/Venous No Growth in 24 hours- Final report to follow
07/18/25 20:25 MRSA Screen - Final
Nose No Methicillin Resistant Staphylococcus aureus isolated.
07/18/25 16:00 Wound Culture - Preliminary
Buttock Staph aureus MRSA
Gram Stain - Preliminary
07/18/25 16:00 Anaerobic Culture - Preliminary
Buttock Culture pending. Anaerobic cultures are examined after 3
days incubation. Additional information to follow.
Wound/abscess/other Cult Preliminary 07/18/25
Moderate Staph aureus MRSA
Isolation Precautions Required
Called to [id number] on 07/19/25 at 1132 by [facility]
Organism 1 Staph aureus MRSA
1. Staph aureus MRSA
M.I.C. RX
--------- ---
Amoxicillin/Potas. Clavulanate <=4/2 R
Ampicillin 8 R
Clindamycin >4 R
Gentamicin <=4 S
Erythromycin >4 R
Levofloxacin 4 I
Oxacillin >2 R
Tetracycline <=4 S
Trimethoprim/Sulfamethoxazole <=0.5/9.5 S
Vancomycin 1 S
[2025-07-21] MEDS: GLUCOPHAGE XR EXTENDED RELEASE 500 MG PO (10:32)
[2025-07-21] MEDS: ZOFRAN ODT (ORALLY DISINTEGRATING) 4 MG PO (10:38)
--- NOTE | 2025-07-21 10:50 | PHA.VAN.FU ---
Vancomycin Assessment / Plan
- Assessment
Renal Function: Stable
WBC's are: WNL
In the past 24 hrs, patient has been: Afebrile
- Dosing Plan
Continue: Vanc 1000mg Q12H
- Monitoring Plan
No level(s) ordered at this time: consider in next few days
- Follow Up
Pharmacy will continue to follow.
Vancomycin Follow UP
- -
Patient Age: 39
Vancomycin Day #: 3
Indication: Skin And Soft Tissue
Requesting Provider: Buck Porras MD / Dr. Brown
Pertinent Antimicrobial Allergies:
no pertinent antibiotic allergies
Height / Weight:
Height 5 ft 6 in
Actual Weight 60.2 kg
- Vital Signs / Lab Results
Temp Pulse Resp BP Pulse Ox
98.0 F 69 16 106/59 99
07/21/25 07:35 07/21/25 07:35 07/21/25 07:35 07/21/25 07:35 07/21/25 07:35
Lab Results - Hematology
07/18/25 07/19/25 07/20/25
12:41 08:09 08:12
WBC 10.4 9.7 6.7
Lab Results - Chemistry
07/18/25 07/20/25 07/21/25
12:41 08:12 06:49
BUN 8 8 9
Creatinine 0.6 0.6 0.6
Estimated Creat Clear 116 116 116
Albumin 4.0
Microbiology Results
07/19/25 16:14 Blood Culture - Preliminary
Blood/Venous No Growth in 24 hours- Final report to follow
07/18/25 20:25 MRSA Screen - Final
Nose No Methicillin Resistant Staphylococcus aureus isolated.
07/18/25 16:00 Wound Culture - Preliminary
Buttock Staph aureus MRSA
Gram Stain - Preliminary
07/18/25 16:00 Anaerobic Culture - Preliminary
Buttock Culture pending. Anaerobic cultures are examined after 3
days incubation. Additional information to follow.
[2025-07-21] MEDS: VANCOCIN 200 IV (11:56)
[2025-07-21] MEDS: MILK OF MAGNESIA 30 ML PO (11:56)
[2025-07-21 15:46] VITALS: BP 88/51
[2025-07-21 18:25] VITALS: BP 92/60
[2025-07-21] MEDS: MIRALAX 17 GRAMS PO (21:20)
[2025-07-21 23:11] VITALS: BP 101/60
[2025-07-22] MEDS: VANCOCIN 200 IV (00:12)
[2025-07-22] MEDS: ROXICODONE 5 MG PO (00:13)
--- NOTE | 2025-07-22 02:59 | PTCARENOTE ---
Pt asked this RN if someone from Case Management could speak to her regarding FMLA paperwork. Pt would need a doc to sign off on her paperwork given she has not been at work because of the abscess and hospitalization. Will pass along to day shift
nurse to make sure that this can happen for the patient. Will answer any other questions pt has regarding this matter.
[2025-07-22 07:00] VITALS: BP 82/54
[2025-07-22] MEDS: TYLENOL 1000 MG PO (09:18)
[2025-07-22] MEDS: HEPARIN 5000 UNITS SC (09:19)
[2025-07-22] MEDS: ZOLOFT 200 MG PO (09:19)
[2025-07-22] MEDS: GLUCOPHAGE XR EXTENDED RELEASE 500 MG PO (09:19)
[2025-07-22] MEDS: BUSPAR 15 MG PO (09:19)
--- NOTE | 2025-07-22 09:23 | W.PN.ID1 ---
Date of Service
Date of Service: July 22, 2025
Today's Communication
Transition to oral Bactrim and doxycycline for an additional 7 days.
Assessment / Plan
Left buttock abscess
- S/p I&D (07/18/2025)
Normal white count with left shift
Hx Cystic acne
PCOS
Endometriosis
Recommendations:
Wound cultures with MRSA.
Continue local care to the wound area.
Given overall improvement transition to Bactrim DS, 2 tabs BID and doxycycline 100 mg p.o. BID, both for 7 additional days.
--> Hold spironolactone while on Bactrim.
Linezolid would be a relative contraindication given underlying sertraline, buspirone and atomoxetine use.
Monitor white count and temperature curve
����������������������������������������������������������
Chief Complaint
-: Other (MRSA left buttock; SSTI)
Subjective / Review of Systems
Patient seen and examined. Reports left buttock area remains feeling raw, although overall discomfort improved.
Review of Systems: No Fever and No Chills
Vital Signs / Physical Exam
Vital Signs
Vital Signs
Temp Pulse Resp BP Pulse Ox
98.5 F 74 20 82/54 98
07/22/25 07:00 07/22/25 07:00 07/22/25 07:00 07/22/25 07:00 07/22/25 07:00
Physical Exam
Constitutional: No Acute Distress, Comfortable and Non-toxic
Eyes: Sclera Anicteric
Pulmonary: Non Labored
Gastrointestinal: Non Distended
Extremities: Negative Edema, Cyanosis or Erythema
Wound: Other (Left buttock wound area with decreased induration; erythema improved; decreased tenderness to touch. Minimal drainage.)
Neurological: Awake and Alert
Psychological: Calm
Objective Data
Lab Data
Lab Results
07/20/25 08:12
07/21/25 06:49
Estimated Creat Clear 116 ml/min 07/21/25 06:49
Total Bilirubin 0.4 mg/dl (0.2-1.3) 07/18/25 12:41
AST 19 U/L (14-36) 07/18/25 12:41
ALT 15 U/L (0-35) 07/18/25 12:41
Alkaline Phosphatase 84 U/L (38-126) 07/18/25 12:41
Most recent labs reviewed.
Micro Results:
07/19/25 16:14 Blood Culture - Preliminary
Blood/Venous No Growth in 48 hours- Final report to follow
07/18/25 16:00 Anaerobic Culture - Preliminary
Buttock NO ANAEROBES ISOLATED
07/18/25 20:25 MRSA Screen - Final
Nose No Methicillin Resistant Staphylococcus aureus isolated.
07/18/25 16:00 Wound Culture - Preliminary
Buttock Staph aureus MRSA
Gram Stain - Preliminary
Wound/abscess/other Cult Preliminary 07/18/25
Moderate Staph aureus MRSA
Isolation Precautions Required
Called to [id number] on 07/19/25 at 1132 by [facility]
Organism 1 Staph aureus MRSA
1. Staph aureus MRSA
M.I.C. RX
--------- ---
Amoxicillin/Potas. Clavulanate <=4/2 R
Ampicillin 8 R
Clindamycin >4 R
Gentamicin <=4 S
Erythromycin >4 R
Levofloxacin 4 I
Oxacillin >2 R
Tetracycline <=4 S
Trimethoprim/Sulfamethoxazole <=0.5/9.5 S
Vancomycin 1 S
--- NOTE | 2025-07-22 09:50 | W.PN.CRS1 ---
Today's Communication / Plan
-
Discharge.
Assessment/Plan
-
Post op day 5.
1. Vital signs normal. No labs today.
2. Wound looks good. Erythema resolved.
3. Appreciate ID input. Stable for discharge.
Subjective Data
Procedure
07/18/2025- incision and drainage of left buttock abscess
Subjective Data
Date of Service: July 22, 2025
Minimal discomfort. She feels that she is improving.
Objective Data
-
Vital Signs
Temp Pulse Resp BP Pulse Ox
98.5 F 74 20 82/54 98
07/22/25 07:00 07/22/25 07:00 07/22/25 07:00 07/22/25 07:00 07/22/25 07:00
Intake & Output
07/21/25 07/22/25 07/23/25
06:59 06:59 06:59
Intake Total 1890 / 1890 720 / 720
Balance 1890 / 1890 720 / 720
Intake:
Oral fluids 840 / 840 720 / 720
IV fluids (Total) 850 / 850
IV piggybacks 200 / 200
Other:
Number of approximated MODERATE 2 4
amounts of urine
Number of approximated LARGE 1
amounts of urine
Number of unmeasured liquid
stools
Rectum 2
Lab Results
07/20/25 08:12
07/21/25 06:49
Physical Exam
-
General: No Acute Distress
Chest: Clear
Cardiovascular: Regular Rate & Rhythm
Abdomen: Soft, Non Distended and Non Tender
Rectal: Other (Left buttock wound healthy. No real skin erythema. Overall improved.)
[2025-07-22] MEDS: ZOFRAN ODT (ORALLY DISINTEGRATING) 4 MG PO (10:03)
--- NOTE | 2025-07-22 11:21 | W.DS.TRANS ---
Addendum entered and electronically signed by KEANU Worley 07/22/25 13:19:
dictated #[id number]
Original Note:
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
-
Discharge Instructions:
Discharge Diagnosis/Procedures Left buttock abscess with cellulitis. Incision
and drainage of abscess
Diet As tolerated,Regular
Activity As tolerated
Bathing Restrictions OK to Shower
Wound Care Sitz baths BID. Place a gauze pad over the open
wound and hold in place with underwear. Change
twice a day and as needed if soiled.
Instructions: How to take a sitz bath
Stand-Alone Forms:
Changes to Home Medications: No
Discharge Medications:
DC Medications w/original date entered in [facility]
atomoxetine 80 mg capsule 80 mg PO DAILY 07/18/25
buspirone 15 mg tablet 15 mg PO BID 07/18/25
ibuprofen 600 mg tablet 600 mg PO Q6HPRN PRN mild to moderate pain 07/18/25
metformin 500 mg tablet,extended release 24 hr 500 mg PO DAILY 07/18/25
oxycodone 5 mg tablet 5 mg PO Q4HPRN PRN moderate to severe pain 07/18/25
sertraline 100 mg tablet 200 mg PO DAILY 07/18/25
spironolactone 50 mg tablet 50 mg PO HS 07/18/25
Held on 07/22/25. Instructions: Resume on 07/30/25. Do not take this medication while on the antibiotics prescribed to you. Ok to resume once antibiotics completed.
acetaminophen 325 mg tablet 650 mg (2 x 325 mg) PO Q4HPRN PRN mild pain #1 tab 07/22/25
doxycycline hyclate 100 mg tablet 100 mg PO BID 7 days #14 tabs 07/22/25
ibuprofen 200 mg tablet 400 - 600 mg (2 - 3 x 200 mg) PO Q6HPRN PRN moderate pain #1 tab 07/22/25
oxycodone 5 mg tablet 5 mg PO Q4HPRN PRN breakthrough/severe pain #10 tabs 07/22/25
sulfamethoxazole 800 mg-trimethoprim 160 mg tablet 1 tab PO Q12H 7 days #14 tabs 07/22/25
Home Medication Changes
Pending Results: No
[2025-07-22] MEDS: BACTRIM DS 800 MG/160 MG 2 TABLET PO (11:35)
[2025-07-22] MEDS: VIBRAMYCIN 100 MG PO (11:35)
[2025-07-22] MEDS: FLUZONE (6 mos+) 2025-2026 FORMULA 0.5 ML IM (11:35)
--- NOTE | 2025-07-22 11:46 | CM ---
Addendum entered by Josefina Perez RN 07/22/25 15:30:
Lyft arranged for p/u today.
Political Theory Professor is Naima Guerrier
[address]
[facility] [id number]

Original Note:
Reviewed the chart notes and provided to the patient a print out of the [place] Application for Benefits. Patient will be eligible for short term income through her employer. Patient will require a ride home . [employer] will need to be utilized.
CM continues to be available to patient/family and is monitoring medical plan for needs at discharge.
Plan: Discharge to home with no needs anticipated/identified at this time.
[2025-07-22 13:32] VITALS: BP 106/69
== END 2025-07-22 15:35 | disposition home or self-care (01) | DRG 603 ==
LOC: 2 NORTH 15:50
PROVIDERS: ADMITTING PHYSICIAN Surgery; CONSULT PHYSICIAN Internal Medicine Infectious Disease; EMERGENCY PHYSICIAN Student in an Organized Health Care Education/Training Program; FAMILY PHYSICIAN Internal Medicine; OTHER PHYSICIAN Internal Medicine
PROC: 0Y910ZZ Drainage of Left Buttock, Open Approach (ICD-10-PCS; 2025-07-18)
PROC: 3E02340 Introduction of Influenza Vaccine into Muscle, Percutaneous Approach (ICD-10-PCS; 2025-07-22)
DX: L02.31 Cutaneous abscess of buttock (principal); L03.317 Cellulitis of buttock; E28.2 Polycystic ovarian syndrome; G47.33 Obstructive sleep apnea (adult) (pediatric); R09.02 Hypoxemia; R07.89 Other chest pain; F43.10 Post-traumatic stress disorder, unspecified; N80.9 Endometriosis, unspecified; L70.0 Acne vulgaris; L02.32 Furuncle of buttock; B95.62 Methicillin resistant Staphylococcus aureus infection as the cause of diseases classified elsewhere; Z60.2 Problems related to living alone; Z79.84 Long term (current) use of oral hypoglycemic drugs; Z79.891 Long term (current) use of opiate analgesic; Z80.0 Family history of malignant neoplasm of digestive organs; Z81.3 Family history of other psychoactive substance abuse and dependence; Z63.8 Other specified problems related to primary support group; Z83.3 Family history of diabetes mellitus; Z82.49 Family history of ischemic heart disease and other diseases of the circulatory system; Z90.49 Acquired absence of other specified parts of digestive tract; Z23 Encounter for immunization
CPT/HCPCS: 80048; 80053; 82962; 83036; 84484; 84703; 85025; 85027; 87040; 87070; 87075; 87147; 87186; 87205; 90656; 93005; 99285; G0008